=== PATIENT | male | born 1985 | race Caucasian/White ===

== ENCOUNTER 2019-12-11 15:45 | Emergency (ER) | payer OTHER ==
[2019-12-11 15:50] VITALS: BP 150/79; PULSE 85; TEMP 98.1; BMI 26.6
[2019-12-11] MEDS ORDERED: diazePAM 5 MG TABLET PO ONE (16:35)
[2019-12-11] MEDS ORDERED: KETOROLAC TROMETHAMINE 30 MG/1 ML VIAL IM ONE (16:35)
[2019-12-11] MEDS ORDERED: diazePAM 5 MG TABLET ONE (16:37)
[2019-12-11] MEDS ORDERED: KETOROLAC TROMETHAMINE 30 MG/1 ML VIAL ONE (16:37)
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
== END 2019-12-11 16:51 | disposition home or self-care (01) ==
LOC: JERFT 15:45
PROC: 3E0233Z Introduction of Anti-inflammatory into Muscle, Percutaneous Approach (ICD-10-PCS; principal; 2019-12-11)
DX: M54.2 Cervicalgia (principal); V47.5XXA Car driver injured in collision with fixed or stationary object in traffic accident, initial encounter; Y92.412 Parkway as the place of occurrence of the external cause; Y93.89 Activity, other specified; Y99.8 Other external cause status
CPT/HCPCS: 99282-25

== ENCOUNTER 2021-01-24 10:29 | Emergency (ER) | payer BC, OTHER ==
[2021-01-24 10:37] VITALS: BP 158/81; PULSE 83; TEMP 97.9; BMI 27.3
[2021-01-24 12:03] LABS: BASO % 0.5 % (0-2.0); EOS % 2.4 % (0-4.5); HEMATOCRIT 43.3 % (35.4-49); HEMOGLOBIN 14.9 GM/dL (11.7-16.9); MCH 31.8 pg (25.7-33.7); MCHC 34.4 g/dl (32.0-35.9); MEAN CELL VOLUME 92.2 fl (80-96); MONO % 6.3 % (3.8-10.2); NEUT % 68.8 % (42.8-82.8); PLATELET COUNT 230 K/MM3 (134-434); RDW 12.2 % (11.9-15.9); WHITE BLOOD COUNT 6.6 K/mm3 (4.0-10.0)
[2021-01-24 12:07] LABS: PH,URINE 7.5 (5.0-8.0); URINE APPEARANCE CLEAR; URINE BILIRUBIN NEGATIVE (NEGATIVE); URINE COLOR YELLOW; URINE GLUCOSE (UA) NEGATIVE (NEGATIVE); URINE KETONE NEGATIVE (NEGATIVE); URINE LEUK ESTERASE NEGATIVE (NEGATIVE); URINE NITRITE NEGATIVE (NEGATIVE); URINE PROTEIN NEGATIVE (NEGATIVE); URINE UROBILINOGEN 0.2 mg/dL (0.2-1.0)
[2021-01-24 12:37] LABS: CALCIUM 9.5 mg/dL (8.5-10.1)
[2021-01-24 12:38] LABS: ALBUMIN 4.2 g/dl (3.4-5.0); BLOOD UREA NITROGEN 14.8 mg/dL (7-18)
[2021-01-24 12:41] LABS: CREATININE 0.9 mg/dL (0.55-1.3)
[2021-01-24 12:42] LABS: BILIRUBIN,TOTAL 0.4 mg/dL (0.2-1)
[2021-01-24 12:46] LABS: POTASSIUM 4.3 mmol/L (3.5-5.1)
[2021-01-24 12:58] LABS: OPIATES, URI NEGATIVE ng/ml (CUTOFF=300); PHENCYCLIDINE,URINE NEGATIVE ng/ml (CUTOFF=25); URINE BENZODIAZEPINES NEGATIVE ng/ml (CUTOFF=200)
[2021-01-24 13:02] LABS: METHADONE, UR NEGATIVE ng/ml (CUTOFF=300)
[2021-01-24 13:09] LABS: COCAINE, UR NEGATIVE ng/ml (CUTOFF=300); URINE AMPHETAMINES NEGATIVE ng/ml (CUTOFF=500); URINE BARBITURATES NEGATIVE ng/ml (CUTOFF=200)
== END 2021-01-24 15:48 | disposition home or self-care (01) ==
LOC: JER 10:29
DX: R42 Dizziness and giddiness (principal)
CPT/HCPCS: 36415; 80053; 80307; 81003; 85025; 93005; 93010; 99284-25

== ENCOUNTER 2021-03-10 20:43 | Emergency (ER) | payer BC ==
[2021-03-10 20:58] VITALS: BMI 27.8
[2021-03-10] MEDS ORDERED: ACETAMINOPHEN 325 MG TABLET (FP) PO ONE (21:17)
[2021-03-10] MEDS ORDERED: ACETAMINOPHEN 325 MG TABLET (FP) ONE (21:32)
[2021-03-10] MEDS ORDERED: ALBUTEROL SO4 2.5/IPRATROPIUM 0.5 INH SOL 3 ML VIAL.NEB. NEB ONE ×4 (21:47→23:11)
[2021-03-10] MEDS ORDERED: AZITHROMYCIN IVPB 500 MG in DEXTROSE 5%-WATER - 250 ML IVPB ONE (22:10)
[2021-03-10] MEDS ORDERED: AZITHROMYCIN IVPB 500 MG/250 ML BAG IVPB ONE (22:20)
[2021-03-10 22:58] VITALS: BP 140/78; PULSE 107; TEMP 99
[2021-03-10] MEDS ORDERED: DEXAMETHASONE 4 MG TABLET (FP) PO ONE (23:03)
[2021-03-10] MEDS ORDERED: DEXAMETHASONE 4 MG TABLET (FP) ONE (23:07)
[2021-03-10] MEDS ORDERED: SODIUM CHLORIDE 0.9% 500 ML INFUS.BAG IV ONE (23:18)
== END 2021-03-11 00:21 | disposition home or self-care (01) ==
LOC: JER 20:43
PROC: 3E0F7GC Introduction of Other Therapeutic Substance into Respiratory Tract, Via Natural or Artificial Opening (ICD-10-PCS; principal; 2021-03-10)
PROC: 3E03329 Introduction of Other Anti-infective into Peripheral Vein, Percutaneous Approach (ICD-10-PCS; 2021-03-10)
DX: J09.X2 Influenza due to identified novel influenza A virus with other respiratory manifestations (principal); J45.909 Unspecified asthma, uncomplicated
CPT/HCPCS: 71046-TC-FY; 87804; 93005; 93010; 99285-25; C9803; U0003; U0005

== ENCOUNTER 2021-07-09 14:59 | Emergency (ER) | payer BC ==
[2021-07-09 15:10] VITALS: BP 152/92; PULSE 63; TEMP 97.9; BMI 27.3
[2021-07-09] MEDS ORDERED: KETOROLAC TROMETHAMINE 30 MG/1 ML VIAL IM ONE (16:24)
[2021-07-09] MEDS ORDERED: KETOROLAC TROMETHAMINE 30 MG/1 ML VIAL ONE (16:32)
== END 2021-07-09 17:27 | disposition home or self-care (01) ==
LOC: JERFT 14:59
PROC: 3E0233Z Introduction of Anti-inflammatory into Muscle, Percutaneous Approach (ICD-10-PCS; principal; 2021-07-09)
DX: K12.2 Cellulitis and abscess of mouth (principal)
CPT/HCPCS: 99284-25